=== PATIENT | female | born 1990 | race Two or more races ===

== ENCOUNTER → 2023-04-23 | Emergency (ER) | payer OTHER ==
[~2023-04-23] VITALS: Ht 152.4 cm
[~2023-04-23] MED LIST: PRENA1 TRUE CO1 EACH PO; PROZAC10 MG PO
== END | disposition home or self-care (01) ==
LOC: ER 20:35
DX: O20.8 Other hemorrhage in early pregnancy (principal); Z3A.01 Less than 8 weeks gestation of pregnancy

== ENCOUNTER 2023-07-17 09:12 | Outpatient (CLI) | payer OTHER | END 2023-07-17 09:26 | disposition home or self-care (01) | LOC: RX STUDY 09:12 | PROVIDERS: ATTEND Obstetrics & Gynecology | DX: N83.9 Noninflammatory disorder of ovary, fallopian tube and broad ligament, unspecified (principal) ==

== ENCOUNTER → 2023-10-27 | Outpatient (CLI) | payer OTHER | END | disposition home or self-care (01) | LOC: PRENATAL 13:01 | PROVIDERS: ATTEND Obstetrics & Gynecology Maternal & Fetal Medicine | DX: O36.80X0 Pregnancy with inconclusive fetal viability, not applicable or unspecified (principal); Z36.82 Encounter for antenatal screening for nuchal translucency; Z3A.11 11 weeks gestation of pregnancy ==

== ENCOUNTER 2023-12-25 09:30 | Outpatient (CLI) | payer OTHER | END 2023-12-25 09:32 | disposition home or self-care (01) | LOC: PRENATAL 09:30 | PROVIDERS: ATTEND Obstetrics & Gynecology Maternal & Fetal Medicine | DX: O35.9XX0 Maternal care for (suspected) fetal abnormality and damage, unspecified, not applicable or unspecified (principal); O35.3XX0 Maternal care for (suspected) damage to fetus from viral disease in mother, not applicable or unspecified; O44.00 Complete placenta previa NOS or without hemorrhage, unspecified trimester; Z3A.20 20 weeks gestation of pregnancy ==

== ENCOUNTER 2025-03-25 13:49 | Outpatient (CLI) | payer OTHER ==
[~2025-03-25 13:49] MED LIST changes: +DHA FROM ALGAE200 MG; +PRENA1 CHEW TA1.4 MG PO; +PROBIOTIC250 MG PO; +PROSCAR5 MG PO
== END 2025-03-25 13:51 | disposition home or self-care (01) ==
LOC: PRENATAL 13:49
PROVIDERS: ATTEND Obstetrics & Gynecology Maternal & Fetal Medicine
DX: O36.80X0 Pregnancy with inconclusive fetal viability, not applicable or unspecified (principal); Z36.82 Encounter for antenatal screening for nuchal translucency; Z3A.12 12 weeks gestation of pregnancy

== ENCOUNTER → 2025-05-17 08:08 | Outpatient (CLI) | payer OTHER ==
[~2025-05-17 08:08] MED LIST changes: +HUMULIN N100 UNIT/2 SUBCUTANEO; +INSULIN SYRING1 EA29 SUBCUTANEO
== END | disposition home or self-care (01) ==
LOC: PRENATAL 08:08
PROVIDERS: ATTEND Obstetrics & Gynecology Maternal & Fetal Medicine
DX: O44.00 Complete placenta previa NOS or without hemorrhage, unspecified trimester (principal); O34.219 Maternal care for unspecified type scar from previous cesarean delivery; O43.90 Unspecified placental disorder, unspecified trimester; Z3A.20 20 weeks gestation of pregnancy

== ENCOUNTER 2025-07-14 13:44 | Outpatient (CLI) | payer OTHER | END 2025-07-14 13:52 | disposition home or self-care (01) | LOC: PRENATAL 13:44 | PROVIDERS: ATTEND Obstetrics & Gynecology Maternal & Fetal Medicine | DX: O26.849 Uterine size-date discrepancy, unspecified trimester (principal); O24.419 Gestational diabetes mellitus in pregnancy, unspecified control; O34.219 Maternal care for unspecified type scar from previous cesarean delivery; O43.90 Unspecified placental disorder, unspecified trimester; Z3A.28 28 weeks gestation of pregnancy ==

== ENCOUNTER → 2025-08-22 10:12 | Outpatient (CLI) | payer OTHER | END | disposition home or self-care (01) | LOC: PRENATAL 10:12 | PROVIDERS: ATTEND Obstetrics & Gynecology Maternal & Fetal Medicine | DX: O26.849 Uterine size-date discrepancy, unspecified trimester (principal); O36.8130 Decreased fetal movements, third trimester, not applicable or unspecified; O24.419 Gestational diabetes mellitus in pregnancy, unspecified control; O34.219 Maternal care for unspecified type scar from previous cesarean delivery; O43.90 Unspecified placental disorder, unspecified trimester; Z3A.34 34 weeks gestation of pregnancy ==

== ENCOUNTER 2025-09-05 15:37 | Outpatient (CLI) | payer OTHER | END 2025-09-05 16:18 | disposition home or self-care (01) | LOC: NST 15:37 | PROVIDERS: ATTEND General Practice | DX: Z34.83 Encounter for supervision of other normal pregnancy, third trimester (principal) ==

== ENCOUNTER 2025-09-07 09:31 | Emergency (ER) | payer OTHER ==
[~2025-09-07] VITALS: Ht 152.4 cm; Wt 78.9 kg
[2025-09-07 09:37] VITALS: BP 108/74; O2SAT 98
[2025-09-07] MEDS ORDERED: ONDANSETRON HCL 2 MG/ML VIAL IV STA (09:45)
[2025-09-07] MEDS ORDERED: RINGERS SOLUTION,LACTATED 1,000 ML IV STA (09:46)
[2025-09-07] MEDS ORDERED: ONDANSETRON HCL 2 MG/ML VIAL ONE (10:05)
[2025-09-07 11:02] LABS: BASO % 0.5 % (0.1-1.2); EOS # 0.12 (0.04-0.54); EOS % 1.2 % (0.7-7.0); LYMPH # 2.90 (1.18-3.74); LYMPH % 29.2 % (19.3-53.1); MEAN PLATELET VOLUME 9.10 fl (9.4-12.4); MONO # 0.57 (0.24-0.82); MONO % 5.7 % (4.7-12.5); NEUT # 6.22 (1.56-6.13); NEUT % 62.7 % (34.0-71.1); RED CELL DISTRIBUTION WIDTH 13.5 % (11.6-14.4)
[2025-09-07 11:16] LABS: COVID-19 AG NEGATIVE (NEGATIVE)
[2025-09-07 11:39] LABS: URINE APPEARANCE Cloudy; URINE BILIRRUBIN Negative (NEGATIVE); URINE BLOOD Negative; URINE COLOR Yellow; URINE GLUCOSE Negative (NEGATIVE); URINE KETONE Negative (NEGATIVE); URINE LEUKOCYTE Small; URINE NITRATE Negative; URINE PROTEIN Trace (NEGATIVE); URINE UROBILINOGEN 0.2 E.U./dl
[2025-09-07 11:43] LABS: URINE BACTERIA 832.6 uL (0.0-1933); URINE EPITHELIAL CELLS 63.0 uL (0.0-38.8); URINE RBC 4.3 uL (0.0-20.8); URINE WBC 12.4 uL (0.0-23.2)
[2025-09-07 11:55] LABS: URINE CAST 0.00 uL (0.0-1.40)
[2025-09-07 11:58] LABS: ALT/SGPT 19.0 U/L (12-78); AST/SGOT 13.0 U/L (15-37); BILIRUBIN TOTAL 0.25 mg/dL (0.3-1.2); BUN CREA RATIO 20.0 (7.0-25.0); CREATININE SERUM 0.45 mg/dL (0.55-1.02); GFR 160.46; GLOBULINA 3.2 G/DL (2.4-3.5); GLUCOSE FASTING 123.0 mg/dL (65-100); OSMOLALITY SERUM 281.0 MOSM/KG (275-295)
[2025-09-07] MEDS ORDERED: CHILDREN'S ASPI81 MG PO (13:35)
== END 2025-09-07 14:00 ==
LOC: ER 09:31
PROVIDERS: General Practice
DX: Z33.1 Pregnant state, incidental (principal); Z3A.36 36 weeks gestation of pregnancy; R11.2 Nausea with vomiting, unspecified; R10.20 Pelvic and perineal pain unspecified side; Z20.822 Contact with and (suspected) exposure to COVID-19

== ENCOUNTER 2025-09-07 13:13 | Outpatient (CLI) | payer OTHER ==
[~2025-09-07] VITALS: Ht 152.4 cm; Wt 77.1 kg
[2025-09-07 11:40] VITALS: BP 105/69
[2025-09-07] MEDS ORDERED: CHILDREN'S ASPI81 MG PO (13:35)
[2025-09-07] MEDS ORDERED: AMPICILLIN SODIUM 2,000 MG VIAL IV NR (14:30)
[2025-09-07] MEDS ORDERED: AMPICILLIN SODIUM 2,000 MG VIAL IV SCH ×2 (14:35→18:00)
[2025-09-07] MEDS ORDERED: FAMOTIDINE/PF 20 MG/2 ML VIAL IV PRN (15:15)
[2025-09-07 15:34] VITALS: BP 112/67
[2025-09-07 20:00] VITALS: BP 102/62
[2025-09-07] MEDS ORDERED: INSULIN NPH HUMAN ISOPHANE 1,000 UNITS/10 ML UNITS SUBCUTANEO SCH (22:30)
[2025-09-08] VITALS: BP 98/61
[2025-09-08 03:24] VITALS: BP 94/57
[2025-09-08 06:22] VITALS: BP 93/50; O2SAT 97
[2025-09-08 11:53] VITALS: BP 105/69
[2025-09-08 15:31] VITALS: BP 91/53
[2025-09-08 16:30] VITALS: BP 91/53
== END 2025-09-08 16:30 | disposition home or self-care (01) ==
LOC: OBS/DEL 13:13
PROVIDERS: ATTEND General Practice
DX: O26.893 Other specified pregnancy related conditions, third trimester (principal); K52.9 Noninfective gastroenteritis and colitis, unspecified; Z3A.36 36 weeks gestation of pregnancy

== ENCOUNTER 2025-09-12 16:33 | Outpatient (CLI) | payer OTHER ==
[~2025-09-12 16:33] MED LIST changes: +CHILDREN'S ASPI81 MG PO
== END 2025-09-12 17:35 | disposition home or self-care (01) ==
LOC: NST 16:33
PROVIDERS: ATTEND General Practice
DX: Z34.83 Encounter for supervision of other normal pregnancy, third trimester (principal)

== ENCOUNTER 2025-09-14 14:30 | Inpatient (IN) | payer OTHER ==
[~2025-09-14] VITALS: Ht 152.4 cm; Wt 78.9 kg
[2025-09-14 13:47] VITALS: BP 114/70
[2025-09-14] MEDS ORDERED: RINGERS SOLUTION,LACTATED 1,000 ML IV SCH (14:45)
[2025-09-14 15:31] LABS: BASO % 0.3 % (0.1-1.2); EOS # 0.12 (0.04-0.54); EOS % 1.3 % (0.7-7.0); LYMPH # 3.19 (1.18-3.74); LYMPH % 35.2 % (19.3-53.1); MEAN PLATELET VOLUME 9.50 fl (9.4-12.4); MONO # 0.58 (0.24-0.82); MONO % 6.4 % (4.7-12.5); NEUT # 5.12 (1.56-6.13); NEUT % 56.5 % (34.0-71.1); RED CELL DISTRIBUTION WIDTH 13.7 % (11.6-14.4); URINE APPEARANCE Cloudy; URINE BILIRRUBIN Negative (NEGATIVE); URINE BLOOD Negative; URINE COLOR Dark Yellow; URINE GLUCOSE Negative (NEGATIVE); URINE LEUKOCYTE Trace; URINE NITRATE Negative; URINE UROBILINOGEN 1.0 E.U./dl
[2025-09-14 15:35] LABS: URINE RBC 36.0 uL (0.0-20.8); URINE WBC 77.5 uL (0.0-23.2)
[2025-09-14 16:09] LABS: INR < 0.93
[2025-09-14 16:17] LABS: TYPE CELLS SQUAMOUS; URINE CAST 0.58 uL (0.0-1.40); URINE CRYSTALS MODERATE /HPF; URINE EPITHELIAL CELLS > 201.7 uL (0.0-38.8); URINE KETONE 40 (NEGATIVE); URINE MUCUS SCANT; URINE PROTEIN 100 (NEGATIVE)
[2025-09-14 16:27] LABS: ALT/SGPT 19.0 U/L (12-78); AST/SGOT 12.0 U/L (15-37); BILIRUBIN TOTAL 0.32 mg/dL (0.3-1.2); BUN CREA RATIO 16.0 (7.0-25.0); CREATININE SERUM 0.7 mg/dL (0.55-1.02); GFR 96.37; GLOBULINA 3.4 G/DL (2.4-3.5); GLUCOSE FASTING 146.0 mg/dL (65-100); OSMOLALITY SERUM 283.0 MOSM/KG (275-295)
[2025-09-14 19:15] VITALS: BP 102/59
[2025-09-14 23:26] VITALS: BP 103/64
[2025-09-15 04:12] VITALS: BP 100/53
[2025-09-15 06:19] VITALS: BP 103/70; O2SAT 98
[2025-09-15] MEDS ORDERED: CEFAZOLIN SODIUM 1,000 MG VIAL IV ONE (08:15)
[2025-09-15 08:39] VITALS: BP 114/70
[2025-09-15] MEDS ORDERED: PRENATA CHEWAB1 EACH PO (09:33)
[2025-09-15 10:38] VITALS: BP 110/70
[2025-09-15] MEDS ORDERED: CHLORHEXIDINE GLUCONATE 120 ML BOTTLE TOP ONE (11:00)
[2025-09-15] MEDS ORDERED: OxyCODONE HCL 5 MG TABLET (ROXICODONE) PO PRN (11:00)
[2025-09-15] MEDS ORDERED: 0.9 % SODIUM CHLORIDE 1,000 ML IV SCH (11:00)
[2025-09-15] MEDS ORDERED: OXYTOCIN 1,000 ML IV SCH (11:00)
[2025-09-15] MEDS ORDERED: OXYTOCIN 10 UNITS/ML VIAL IV ONE (14:00)
[2025-09-15] MEDS ORDERED: ERYTHROMYCIN BASE OPHT 1GM EACH TUBE OP ONE (14:00)
[2025-09-15] MEDS ORDERED: ACETAMINOPHEN 500 MG GEL..CAP PO SCH (17:00)
[2025-09-15] MEDS ORDERED: DOCUSATE SODIUM 100MG CAP PO SCH (17:00)
[2025-09-15 18:51] VITALS: BP 107/72
[2025-09-16 02:14] VITALS: BP 110/70
[2025-09-16 06:02] VITALS: BP 100/64
[2025-09-16 08:00] VITALS: BP 93/55
[2025-09-16 10:31] LABS: BASO % 0.4 % (0.1-1.2); EOS # 0.09 (0.04-0.54); EOS % 0.8 % (0.7-7.0); LYMPH # 3.36 (1.18-3.74); LYMPH % 29.6 % (19.3-53.1); MEAN PLATELET VOLUME 9.20 fl (9.4-12.4); MONO # 0.79 (0.24-0.82); MONO % 6.9 % (4.7-12.5); NEUT # 7.04 (1.56-6.13); NEUT % 61.9 % (34.0-71.1); RED CELL DISTRIBUTION WIDTH 13.3 % (11.6-14.4)
[2025-09-16 15:50] VITALS: BP 102/70
[2025-09-17 00:07] VITALS: BP 105/64
[2025-09-17 10:21] VITALS: BP 117/77
[2025-09-17] MEDS ORDERED: COLACE100 MG PO (13:41)
[2025-09-17] MEDS ORDERED: IBUPROFEN800 MG PO (13:41)
[2025-09-17] MEDS ORDERED: OXYCODONE HCL5 MG PO (13:41)
== END 2025-09-17 13:53 | disposition home or self-care (01) | DRG 785 ==
LOC: OBS/DEL 14:30 → LDR 09-15 08:15 → OBS/DEL 09-15 08:15 → O/R 09-15 14:20 → OB/GYN 09-15 14:40
PROVIDERS: Student in an Organized Health Care Education/Training Program; ADMIT General Practice; ATTEND General Practice
PROC: 0UB70ZZ Excision of Bilateral Fallopian Tubes, Open Approach (ICD-10-PCS; 2025-09-15)
PROC: 4A1HXCZ Monitoring of Products of Conception, Cardiac Rate, External Approach (ICD-10-PCS; 2025-09-15)
PROC: 10D00Z1 Extraction of Products of Conception, Low, Open Approach (ICD-10-PCS; principal; 2025-09-15 15:00)
DX: O34.211 Maternal care for low transverse scar from previous cesarean delivery (principal); O24.420 Gestational diabetes mellitus in childbirth, diet controlled; Z3A.37 37 weeks gestation of pregnancy; Z37.0 Single live birth; Z30.2 Encounter for sterilization